=== PATIENT | female | born 1975 | race Caucasian/White ===

== ENCOUNTER 2018-08-12 16:52 | Emergency (ER) | payer SELFPAY ==
--- NOTE | 2018-08-12 16:55 | ED PDOC ---
Arrival/HPI - General Time Seen by Provider: 08/12/18 16:53 Historian: Patient - History of Present Illness Narrative History of Present Illness (Text): 08/12/18 16:54 43 y/o female, pmh including UTI and chronic lumber L4L5 disc herniation with chronic back pain, nkda, c/o lower back pain x 2 days with no fall or trauma. Aching pain, aggravated by movement, no numbness or tingling, no urinary or bowel incontinence or retention, took tylenol at home with limited relief, no flank or pelvic pain, no night sweat, no dizziness, no change in vision, no other medical or psychological complaints. Past Medical History - Provider Review Nursing Documentation Reviewed: Yes - Hematological/Oncological Hx Blood Transfusions: No Hx Blood Transfusion Reaction: No - Psychiatric Hx Depression: No Hx Emotional Abuse: No Hx Physical Abuse: No Hx Substance Use: No - Anesthesia Hx Anesthesia Reactions: No Hx Malignant Hyperthermia: No - Suicidal Assessment Feels Threatened In Home Enviroment: No Family/Social History - Physician Review Nursing Documentation Reviewed: Yes Family/Social History: Unknown Family HX Hx Alcohol Use: No Hx Substance Use: No Hx Substance Use Treatment: No Allergies/Home Meds Allergies/Adverse Reactions: Allergies No Known Allergies Allergy (Verified 08/21/12 14:28) Review of Systems - Review of Systems Constitutional: absent: Fatigue, Fevers Eyes: absent: Vision Changes ENT: absent: Hearing Changes Respiratory: absent: SOB, Cough Cardiovascular: absent: Chest Pain Gastrointestinal: absent: Abdominal Pain, Nausea, Vomiting Musculoskeletal: Back Pain. absent: Arthralgias, Neck Pain, Joint Swelling, Myalgias Skin: absent: Rash, Pruritis Neurological: absent: Headache, Dizziness Psychiatric: absent: Anxiety, Depression, Suicidal Ideation Physical Exam - Systems Exam Head: Present: Atraumatic, Normocephalic Pupils: Present: PERRL Extroacular Muscles: Present: EOMI Conjunctiva: Present: Normal Mouth: Present: Moist Mucous Membranes Neck: Present: Normal Range of Motion Respiratory/Chest: Present: Clear to Auscultation, Good Air Exchange. No: Respiratory Distress, Accessory Muscle Use Cardiovascular: Present: Regular Rate and Rhythm, Normal S1, S2. No: Murmurs Abdomen: No: Tenderness, Distention, Peritoneal Signs Back: Present: Normal Inspection, Paraspinal Tenderness (LS spine: mild rt. paraspinal L4L5 region, no midline tenderness, no step off, no ecchymosis, no saddling gait. ). No: CVA Tenderness, Midline Tenderness Upper Extremity: Present: Normal Inspection. No: Cyanosis, Edema Lower Extremity: Present: Normal Inspection. No: Edema Neurological: Present: GCS=15, CN II-XII Intact, Speech Normal Skin: Present: Warm, Dry, Normal Color. No: Rashes Psychiatric: Present: Alert, Oriented x 3, Normal Insight, Normal Concentration Medical Decision Making ED Course and Treatment: 08/12/18 18:03 -Urine hcg -UA -Toradol IM/valium -Observe and reassess 08/12/18 19:03 -Urine hcg is negative -UA show no UTI -Pt. feels much better, walking around , no focal neurological deficits, lab discussed, will discharge home. -Discharge home with naproxen, flexeril, bed rest, follow up with your own pmd and orthopedic within 2 days, return to the ER for any new or worsening signs or symptoms. - PA / MORGUE ATTENDANT / Resident Statement MD/DO has reviewed & agrees with the documentation as recorded. Disposition/Present on Arrival - Present on Arrival Any Indicators Present on Arrival: No History of DVT/PE: No History of Uncontrolled Diabetes: No Urinary Catheter: No History of Decub. Ulcer: No History Surgical Site Infection Following: None - Disposition Have Diagnosis and Disposition been Completed?: Yes Diagnosis: Low back pain Disposition: HOME/ ROUTINE Disposition Time: 19:06 Patient Plan: Discharge Condition: IMPROVED Additional Instructions: -Discharge home with naproxen, flexeril, bed rest, follow up with your own pmd and orthopedic within 2 days, return to the ER for any new or worsening signs or symptoms. Prescriptions: Cyclobenzaprine [Cyclobenzaprine HCl] 10 mg PO TID PRN #21 tab PRN Reason: Other Naproxen 500 mg PO BID PRN #20 tablet PRN Reason: Other [place]errals: [facility] [place] - Follow up with primary Forms: WORK NOTE
[2018-08-12 18:01] VITALS: BMI 20.3
[2018-08-12 18:48] LABS: PH,URINE 7.5 (4.7-8.0); URINE BILIRUBIN NEGATIVE (NEGATIVE); URINE BLOOD NEGATIVE (NEGATIVE); URINE GLUCOSE (UA) NEGATIVE (NEGATIVE); URINE LEUKOCYTE ESTERASE NEGATIVE Leu/uL (NEGATIVE); URINE PROTEIN NEGATIVE mg/dL (<30 mg/dL); URINE UROBILINOGEN 0.2 E.U./dL (<1 E.U./dL)
[2018-08-12 18:53] LABS: URINE APPEARANCE CLEAR (CLEAR); URINE COLOR YELLOW (YELLOW)
[2018-08-12 19:08] VITALS: RESP 18
[2018-08-12 19:29] VITALS: BP 125/73; PULSE 74; TEMP 98.4; O2SAT 97
== END 2018-08-12 19:17 | disposition home or self-care (01) ==
LOC: ED 16:52
DX: M54.5 Low back pain (principal)
CPT/HCPCS: 81003; 96372; 99283; J1885

== ENCOUNTER 2018-11-23 14:20 | Emergency (ER) | payer OTHER ==
[2018-11-23 14:21] VITALS: BMI 20.3
[2018-11-23 15:12] LABS: BASO # 0.02 K/mm3 (0.0-2.0); BASO % 0.2 % (0.0-3.0); EOS # 0.1 (0.0-0.7); EOS % 0.5 % (1.5-5.0); HEMOGLOBIN 12.2 g/dL (12.0-16.0); LYMPH # 1.7 (1.2-3.4); LYMPH % 17.6 % (22.0-35.0); MEAN CELL VOLUME 84.3 fl (80.0-105.0); MEAN CORPUSCULAR HEMOGLOBIN 27.4 pg (25.0-35.0); MEAN CORPUSCULAR HGB CONC 32.4 g/dl (31.0-37.0); MEAN PLATELET VOLUME 11.5 fl (7.0-11.0); MONO # 0.4 (0.1-0.6); RBC 4.46 10^6/uL (3.5-6.1); RED CELL DISTRIBUTION WIDTH 14.2 % (11.5-14.5); WHITE BLOOD COUNT 9.6 10^3/uL (4.5-11.0)
[2018-11-23 15:21] LABS: ALB/GLOB RATIO 1.3 (1.1-1.8); ALBUMIN 4.3 g/dL (3.0-4.8); ALT/SGPT 11 U/L (7-56); AST/SGOT 23 U/L (14-36); BLOOD UREA NITROGEN 19 mg/dL (7-21); CALCIUM 8.9 mg/dL (8.4-10.5); GFR NON-AFRICAN AMERICAN > 60
--- NOTE | 2018-11-23 15:23 | RAD ---
Date of service: 11/23/2018 HISTORY: chest pain COMPARISON: No prior. FINDINGS: LUNGS: No active pulmonary disease. PLEURA: No significant pleural effusion identified, no pneumothorax apparent. CARDIOVASCULAR: No aortic atherosclerotic calcification present. Normal cardiac size. No pulmonary vascular congestion. OSSEOUS STRUCTURES: No significant abnormalities. VISUALIZED UPPER ABDOMEN: Normal. OTHER FINDINGS: None. IMPRESSION: No active disease.
[2018-11-23 15:33] LABS: B-TYPE NATRIURETIC PEPTIDE 49.4 pg/mL (0-450); TROPONIN I < 0.01 ng/mL
[2018-11-23 16:13] LABS: INR 1.13; PROTHROMBIN TIME 12.5 SECONDS (9.4-12.5)
[2018-11-23 16:17] LABS: D DIMER < 200 ng/mlDDU (0-243)
--- NOTE | 2018-11-23 16:32 | ED PDOC ---
Arrival/HPI - General Chief Complaint: Shortness Of Breath Time Seen by Provider: 11/23/18 14:31 Historian: Patient - History of Present Illness Narrative History of Present Illness (Text): 11/23/18 16:24 43yo female with no pmhx who present with complaint of burning abdominal pain, chest pain and SOB x one week. She also requested nonproductive cough. She denies fever, chills, nausea, vomiting, diaphoresis, recent travel, melena, hematemesis, any other complaint. Past Medical History - Provider Review Nursing Documentation Reviewed: Yes - Reproductive Currently : No - Hematological/Oncological Hx Blood Transfusions: No Hx Blood Transfusion Reaction: No - Psychiatric Hx Depression: No Hx Emotional Abuse: No Hx Physical Abuse: No Hx Substance Use: No - Surgical History Hx Section: Yes - Anesthesia Hx Anesthesia Reactions: No Hx Malignant Hyperthermia: No - Suicidal Assessment Feels Threatened In Home Enviroment: No Family/Social History - Physician Review Nursing Documentation Reviewed: Yes Family/Social History: Unknown Family HX Smoking Status: Never Smoked Hx Alcohol Use: No Hx Substance Use: No Hx Substance Use Treatment: No Allergies/Home Meds Allergies/Adverse Reactions: Allergies No Known Allergies Allergy (Verified 11/23/18 14:29) Review of Systems - Physician Review All systems were reviewed & negative as marked: Yes - Review of Systems Constitutional: Normal Eyes: Normal ENT: Normal Respiratory: SOB Cardiovascular: Chest Pain Gastrointestinal: Normal Genitourinary Female: Normal Musculoskeletal: Normal Skin: Normal Neurological: Normal Endocrine: Normal Hemo/Lymphatic: Normal Psychiatric: Normal Physical Exam Vital Signs Reviewed: Yes Vital Signs Temp Pulse Resp BP Pulse Ox 11/23/18 14:37 2 L 11/23/18 14:30 98.2 F 83 18 118/74 98 Temperature: Afebrile Blood Pressure: Normal Pulse: Regular Respiratory Rate: Normal Appearance: Positive for: Well-Appearing, Non-Toxic, Comfortable Pain Distress: None Mental Status: Positive for: Alert and Oriented X 3 - Systems Exam Head: Present: Atraumatic, Normocephalic Pupils: Present: PERRL Extroacular Muscles: Present: EOMI Conjunctiva: Present: Normal Mouth: Present: Moist Mucous Membranes Neck: Present: Normal Range of Motion Respiratory/Chest: Present: Clear to Auscultation, Good Air Exchange. No: Resp iratory Distress, Accessory Muscle Use, Wheezes, Decreased Breath Sounds, Retracting, Rhonchi, Tachypneic Cardiovascular: Present: Regular Rate and Rhythm, Normal S1, S2. No: Murmurs Abdomen: Present: Normal Bowel Sounds, Other (Soft). No: Tenderness, Distention, Peritoneal Signs, Rebound, Guarding, McBurney's Point Tender, Rovsing's Sign Present Back: Present: Normal Inspection Upper Extremity: Present: Normal Inspection. No: Cyanosis, Edema Lower Extremity: Present: Normal Inspection. No: Edema Neurological: Present: GCS=15, CN II-XII Intact, Speech Normal Skin: Present: Warm, Dry, Normal Color. No: Rashes Psychiatric: Present: Alert, Oriented x 3, Normal Insight, Normal Concentration Medical Decision Making ED Course and Treatment: 11/23/18 19:24 PT presented to ED for stated history Labs EKG chest xray Pepcid EKG NSR @ 83bpm Labs was unremarkable Chest xray IMPRESSION: No active disease. She have no cardiac risk factors. Result was DW the pt. She was DC home with tessalon, albuterol and pepcid. Referred to PMD/linotyper - Lab Interpretations Lab Results: PT 12.5 SECONDS (9.4-12.5) 11/23/18 15:40 INR 1.13 11/23/18 15:40 APTT 30.0 Seconds (26.9-38.3) 11/23/18 15:40 D-Dimer, Quantitative < 200 ng/mlDDU (0-243) 11/23/18 15:40 Troponin I < 0.01 ng/mL 11/23/18 14:45 NT-Pro-B Natriuret Pep 49.4 pg/mL (0-450) 11/23/18 14:45 Total Bilirubin 0.4 mg/dL (0.2-1.3) 11/23/18 14:45 AST 23 U/L (14-36) 11/23/18 14:45 ALT 11 U/L (7-56) 11/23/18 14:45 Alkaline Phosphatase 58 U/L (38-126) 11/23/18 14:45 Total Protein 7.8 g/dL (5.8-8.3) 11/23/18 14:45 Albumin 4.3 g/dL (3.0-4.8) 11/23/18 14:45 Globulin 3.5 gm/dL 11/23/18 14:45 Albumin/Globulin Ratio 1.3 (1.1-1.8) 11/23/18 14:45 - RAD Interpretation Radiology Orders: 11/23/18 14:37 CHEST PORTABLE [RAD] Stat - Medication Orders Current Medication Orders: Famotidine (Pepcid) 20 mg IVP STAT STA Stop: 11/23/18 16:24 Disposition/Present on Arrival - Present on Arrival Any Indicators Present on Arrival: No History of DVT/PE: No History of Uncontrolled Diabetes: No Urinary Catheter: No History of Decub. Ulcer: No History Surgical Site Infection Following: None - Disposition Have Diagnosis and Disposition been Completed?: Yes Diagnosis: Abdominal pain, Chest pain, Cough Disposition: HOME/ ROUTINE Disposition Time: 16:55 Patient Plan: Discharge Condition: STABLE Discharge Instructions (ExitCare): Chest Pain, Acute Abdomen (Belly Pain), Adult (DC), Chest Pain (ED) Additional Instructions: Follow up with your Doctor/Director Staffing Return to ED for any new or worsening symptoms Prescriptions: RX: Albuterol HFA [Ventolin HFA 90 mcg/actuation (8 g)] 2 puff IH [id number] #1 puff Benzonatate [Tessalon Perles] 100 mg PO TID #20 sgl Famotidine [Pepcid] 40 mg PO DAILY #10 tab Referrals: PCP,HANS [Primary Care Provider] - Follow up with primary Mey Funes MD [Medical Doctor] - Follow up with primary Manuel Wasserman MD [Staff Provider] - Follow up with primary Forms: [employer] (Hungarian)
[2018-11-23 17:44] VITALS: BP 117/52; PULSE 76; RESP 8; TEMP 98; O2SAT 97
--- NOTE | 2018-11-24 00:55 | CARD ---
APPROVED REPORT Date of service: 11/23/2018 EKG Measurement Heart [id number] <Conclusion> Normal sinus rhythm Normal ECG
== END 2018-11-23 17:44 | disposition home or self-care (01) ==
LOC: ED 14:20
DX: R07.9 Chest pain, unspecified (principal); R10.9 Unspecified abdominal pain; R05 Cough